=== PATIENT | female | born 1965 | race Caucasian/White ===

== ENCOUNTER 2018-10-10 18:13 | Emergency (ER) | payer MEDICAID ==
[~2018-10-10 18:13] MED LIST: IBUP-1984 PO; LORA1TAB PO; TRAZ-91 PO; ZIPR40CA2 PO; [UNRECOGNIZED DRUG - CODE] PO
[2018-10-10 19:06] VITALS: BP 112/73
== END 2018-10-10 19:09 | disposition home or self-care (01) ==
LOC: ER 18:14
DX: Z04.1 Encounter for examination and observation following transport accident (principal); J44.9 Chronic obstructive pulmonary disease, unspecified; F17.200 Nicotine dependence, unspecified, uncomplicated; Z90.710 Acquired absence of both cervix and uterus
CPT/HCPCS: 99283

== ENCOUNTER 2020-01-29 05:04 | Emergency (ER) | payer MEDICARE, MEDICAID ==
[~2020-01-29] VITALS: Ht 152.4 cm; Wt 72.0 kg
[2020-01-29 05:28] VITALS: BP 122/84
== END 2020-01-30 05:55 | disposition home or self-care (01) ==
LOC: ER 05:08
DX: Z00.8 Encounter for other general examination (principal); R05 Cough; J44.9 Chronic obstructive pulmonary disease, unspecified; F41.9 Anxiety disorder, unspecified; F32.9 Major depressive disorder, single episode, unspecified; F17.200 Nicotine dependence, unspecified, uncomplicated; Z90.710 Acquired absence of both cervix and uterus; Z72.89 Other problems related to lifestyle; Z79.899 Other long term (current) drug therapy
CPT/HCPCS: 99281

== ENCOUNTER 2020-03-27 09:56 | Emergency (ER) | payer MEDICARE, MEDICAID ==
[~2020-03-27] VITALS: Ht 152.4 cm; Wt 72.7 kg
[2020-03-27 09:59] VITALS: BP 123/76
[2020-03-27] MEDS ORDERED: ACET-2144 PO (11:57)
[2020-03-27] MEDS ORDERED: IBUP-1984 PO (11:57)
== END 2020-03-27 12:15 | disposition home or self-care (01) ==
LOC: ER 09:57
DX: M79.644 Pain in right finger(s) (principal); J44.9 Chronic obstructive pulmonary disease, unspecified; F41.9 Anxiety disorder, unspecified; F32.9 Major depressive disorder, single episode, unspecified; Z90.710 Acquired absence of both cervix and uterus; Z72.89 Other problems related to lifestyle; Z79.899 Other long term (current) drug therapy
CPT/HCPCS: 29125; 73130; 99283

== ENCOUNTER 2020-04-18 10:52 | Emergency (ER) | payer MEDICARE, MEDICAID ==
[~2020-04-18] VITALS: Ht 152.4 cm; Wt 72.7 kg
[2020-04-18 10:59] VITALS: BP 122/75
== END 2020-04-18 12:18 | disposition home or self-care (01) ==
LOC: ER 10:53
DX: K42.9 Umbilical hernia without obstruction or gangrene (principal); J44.9 Chronic obstructive pulmonary disease, unspecified; F41.9 Anxiety disorder, unspecified; F32.9 Major depressive disorder, single episode, unspecified; F17.200 Nicotine dependence, unspecified, uncomplicated; Z90.710 Acquired absence of both cervix and uterus; Z72.89 Other problems related to lifestyle; Z79.899 Other long term (current) drug therapy
CPT/HCPCS: 99281

== ENCOUNTER 2020-04-29 06:33 | Day surgery (SDC) | payer MEDICARE, MEDICAID ==
[2020-04-22 11:34] LABS: BASOPHILS # (AUTO) 0.1 X10'3 (0-0.2); BASOPHILS % (AUTO) 0.7 % (0-1); EOSINOPHILS # (AUTO) 0.3 X10'3 (0-0.9); EOSINOPHILS % (AUTO) 3.1 % (0-6); LYMPHOCYTES # (AUTO) 2.7 X10'3 (1.1-4.8); LYMPHOCYTES % (AUTO) 31.6 % (21-51); MEAN CORPUSCULAR HEMOGLOBIN 31.7 PG (27.0-31.0); MEAN CORPUSCULAR HGB CONC 34.4 g/dL (33.0-36.5); MEAN CORPUSCULAR VOLUME 92.1 FL (78-98); MEAN PLATELET VOLUME 9.1 FL (7.4-10.4); MONOCYTES # (AUTO) 0.7 X10'3 (0-0.9); MONOCYTES % (AUTO) 7.7 % (2-12); NEUTROPHILS # (AUTO) 4.9 X10'3 (1.8-7.7); NEUTROPHILS % (AUTO) 56.9 % (42-75); PRE OP HEMATOCRIT 40.4 % (35.0-45.0); PRE OP HEMOGLOBIN 13.9 g/dL (12.0-16.0); PRE OP PLATELET COUNT 275 X10'3 (140-440); RED BLOOD COUNT 4.38 X10'6 (4.20-5.60); RED CELL DISTRIBUTION WIDTH 14.8 % (11.5-14.5)
[2020-04-22 11:48] LABS: ALBUMIN 3.9 G/DL (3.4-5.0); ALBUMIN/GLOBULIN RATIO 1.1 (1.1-1.5); ALKALINE PHOSPHATASE 70 IU/L (46-116); BLOOD UREA NITROGEN 12 MG/DL (7-18); BUN/CREATININE RATIO 16.9 (6.6-38.0); CHLORIDE 104 MMOL/L (99-107); CREATININE 0.71 MG/DL (0.40-0.90); PRE OP ALT 33 U/L (30-65); PRE OP ANION GAP 8 (8-16); PRE OP AST 17 U/L (10-37); PRE OP BILIRUB, TOTAL 0.3 MG/DL (0.0-1.0); PRE OP GLUCOSE 97 MG/DL (70-104); PRE OP POTASSIUM 4.2 MMOL/L (3.4-5.1); PRE OP SODIUM 140 MMOL/L (135-145); TOTAL CARBON DIOXIDE 28.3 MMOL/L (24-32); TOTAL PROTEIN 7.5 G/DL (6.4-8.2); eGFR 85 ML/MIN
[2020-04-22 12:33] LABS: CLARITY,URINE CLEAR (Clear); COLOR,URINE YELLOW (Yellow); GLUCOSE, URINE NEGATIVE (Neg); KETONES,URINE NEGATIVE (Neg); LEUKOCYTE ESTERASE ,URINE NEGATIVE (Neg); NITRITES, URINE NEGATIVE (Neg); OCCULT BLOOD,URINE NEGATIVE (Neg); PROTEIN,URINE NEGATIVE (Neg)
[2020-04-22 12:35] LABS: UA COLLECTION TYPE CLN CATCH MIDSTREAM
[2020-04-29] VITALS (9 sets, daily range): BP systolic 105–120; BP diastolic 67–73
[~2020-04-29] VITALS: Ht 152.4 cm; Wt 77.5 kg
[~2020-04-29 06:33] MED LIST changes: +ALBU18HF2 INH; +ALBU2.5V10 INH; +BUSP7.5T5 PO; +CLON-369 PO; -IBUP-1984 PO; -LORA1TAB PO; +LURA40TA3 PO; +UMEC1DIS INH; +VILA20TA PO; -ZIPR40CA2 PO; -[UNRECOGNIZED DRUG - CODE] PO; +albuterol 2.5 MG/3 ML nebule NEB ONE; +cefazolin/dext.iso 2gm/50ml 50 ML IV ONE; +famotidine 10mg tablet PO ONE; +ringers solution, lacted 1,000 ML IV SCH
[2020-04-29] MEDS ORDERED: LIDOcaine 1% (10mg/ml) 2ml vial ONE (06:57)
[2020-04-29] MEDS ORDERED: BUPIVAcaine/PF 2.5 mg/ml (0.25%) 30ml vial ONE (07:21)
[2020-04-29] MEDS ORDERED: sevoflurane 250ml liquid IH ONE (09:22)
[2020-04-29] MEDS ORDERED: dexamethasone sod phosphate 10mg/ml inj ONE (09:22)
[2020-04-29] MEDS ORDERED: ondansetron/PF 4mg/2ml inj ONE (09:22)
[2020-04-29] MEDS ORDERED: fentaNYL/PF 50MCG/1 ML 2ML syringe ONE (09:28)
[2020-04-29] MEDS ORDERED: meperidine/PF 25mg/ml syringe ONE (09:29)
[2020-04-29] MEDS ORDERED: midazolam 2 mg/2 ml injection ONE (09:29)
[2020-04-29] MEDS ORDERED: propofol inj 20 ML IV ONE (09:36)
[2020-04-29] MEDS ORDERED: LIDOcaine 2% (20mg/ml) 5ml vial ONE (09:36)
[2020-04-29] MEDS ORDERED: rocuronium 10mg/ml inj IV ONE (09:36)
[2020-04-29] MEDS ORDERED: morphine 4 MG/ML inj SYRINge IV PRN (09:55)
[2020-04-29] MEDS ORDERED: ondansetron/PF 4mg/2ml inj IV PRN (09:55)
[2020-04-29] MEDS ORDERED: meperidine/PF 25mg/ml syringe IV PRN ×3 (09:55)
[2020-04-29] MEDS ORDERED: ringers solution, lacted 1,000 ML IV SCH (09:55)
[2020-04-29] MEDS ORDERED: morphine 2 MG/ML inj. syringe IV PRN (09:55)
[2020-04-29] MEDS ORDERED: proCHLORperazine 10 MG/2 ml inj IV PRN (09:55)
[2020-04-29] MEDS ORDERED: ketorolac trometh. 30mg/ml inj. ONE (10:06)
[2020-04-29] MEDS ORDERED: neostigmine methylsulfate 1 MG/ML 10ml vial ONE (10:09)
[2020-04-29] MEDS ORDERED: glycopyrrolate 0.2mg/ml inj ONE (10:09)
--- NOTE | 2020-04-29 10:23 | NUR ---
RECEIVED FROM OR VIA RE[facility] ACCOMPANIED BY ANESTHESIOLOGIST DR AREVALO, REPORT GIVEN.PT DROWSY BUT AROUSES EASILY AND DENIES PAIN AT THIS TIME.20 GAUGE PIV L WRIST PATENT AND RUNNING LR AT 100 ML/HR. LG BANDAIDS TO ABDOMEN CDI, ABD SOFT, ADAMSON, VSS, BRISK CAP REFILL, PPULSES PALPABLE, RESTING COMFORTABLY.
--- NOTE | 2020-04-29 11:23 | NUR ---
PT AWAKE AND ALERT AND DENIES PAIN AT THIS TIME.20 GAUGE PIV L WRIST DCD, CAT TIP INTACT. LG BANDAIDS TO ABDOMEN CDI, ABD SOFT, ADAMSON, VSS, BRISK CAP REFILL, PPULSES PALPABLE, DISCHARGE CRITERIA MET. DISCHARGE INSTRUCTIONS GIVEN AND PT VERBALIZED UNDERSTANDING. TOLERATING FLUIDS, ABLE TO DRESS SELF AND AMBULATE WITH NO ASSIST. TRANSPORTED VIA WHEELCHAIR TO FRIEND IN PERSONAL VEHICLE TO HOME.
== END 2020-04-29 11:23 | disposition home or self-care (01) ==
LOC: PAS 06:33
PROVIDERS: ATTEND Surgery
DX: K42.9 Umbilical hernia without obstruction or gangrene (principal); D17.1 Benign lipomatous neoplasm of skin and subcutaneous tissue of trunk; J44.9 Chronic obstructive pulmonary disease, unspecified; M19.90 Unspecified osteoarthritis, unspecified site; E78.5 Hyperlipidemia, unspecified; F41.9 Anxiety disorder, unspecified; F31.9 Bipolar disorder, unspecified; Z90.710 Acquired absence of both cervix and uterus; F17.210 Nicotine dependence, cigarettes, uncomplicated; Z79.899 Other long term (current) drug therapy; Z20.828 Contact with and (suspected) exposure to other viral communicable diseases; Z98.890 Other specified postprocedural states; Z80.1 Family history of malignant neoplasm of trachea, bronchus and lung; Z83.6 Family history of other diseases of the respiratory system; Z82.61 Family history of arthritis; Z84.89 Family history of other specified conditions
CPT/HCPCS: 22902; 36415; 49320; 80053; 81003; 82948; 85025; 87635; 93005; C1758; J1100; J1885; J2001; J2175; J2250; J2405; J2704; J2710; J3010; J3490; J7120; A4215; A4618; A7000

== ENCOUNTER 2020-05-06 20:21 | Emergency (ER) | payer MEDICARE, MEDICAID ==
[~2020-05-06] VITALS: Ht 152.4 cm; Wt 77.3 kg
[~2020-05-06 20:21] MED LIST changes: -albuterol 2.5 MG/3 ML nebule NEB ONE; -cefazolin/dext.iso 2gm/50ml 50 ML IV ONE; -famotidine 10mg tablet PO ONE; -ringers solution, lacted 1,000 ML IV SCH
[2020-05-06 20:53] LABS: BASOPHILS # (AUTO) 0.1 X10'3 (0-0.2); BASOPHILS % (AUTO) 1.1 % (0-1); EOSINOPHILS # (AUTO) 0.4 X10'3 (0-0.9); EOSINOPHILS % (AUTO) 4.1 % (0-6); HEMATOCRIT 37.9 % (35.0-45.0); HEMOGLOBIN 13.4 g/dl (12.0-16.0); LYMPHOCYTES # (AUTO) 2.5 X10'3 (1.1-4.8); MEAN CORPUSCULAR HGB CONC 35.3 g/dL (33.0-36.5); MEAN CORPUSCULAR VOLUME 90.5 FL (78-98); MONOCYTES # (AUTO) 0.7 X10'3 (0-0.9); MONOCYTES % (AUTO) 7.2 % (2-12); NEUTROPHILS # (AUTO) 6.4 X10'3 (1.8-7.7); NEUTROPHILS % (AUTO) 62.6 % (42-75); PLATELET COUNT 267 X10'3 (140-440); RED BLOOD COUNT 4.19 X10'6 (4.20-5.60); RED CELL DISTRIBUTION WIDTH 15.1 % (11.5-14.5); WHITE BLOOD COUNT 10.2 X10'3 (4.5-11.0)
[2020-05-06] MEDS ORDERED: iohexol 300mg/ml 100ml inj. ONE (20:55)
[2020-05-06 21:07] LABS: ALANINE AMINOTRANSFERASE 20 U/L (12-78); ALBUMIN 3.4 G/DL (3.4-5.0); ALBUMIN/GLOBULIN RATIO 0.9 (1.1-1.5); ALKALINE PHOSPHATASE 68 IU/L (46-116); ANION GAP 7 (8-16); ASPARTATE AMINO TRANSFERASE 15 U/L (10-37); BILIRUBIN,TOTAL 0.5 MG/DL (0.1-1.0); BLOOD UREA NITROGEN 8 MG/DL (7-18); BUN/CREATININE RATIO 15.4 (6.6-38.0); CALCIUM 9.1 MG/DL (8.5-10.1); CHLORIDE 100 MMOL/L (99-107); CREATININE 0.52 MG/DL (0.40-0.90); GLUCOSE 107 MG/DL (70-104); POTASSIUM 3.8 MMOL/L (3.5-5.1); SODIUM 134 MMOL/L (135-145); TOTAL CARBON DIOXIDE 27.2 MMOL/L (24-32); TOTAL PROTEIN 7.4 G/DL (6.4-8.2); eGFR > 90 ML/MIN
[2020-05-06] MEDS ORDERED: morphine 10mg/ml inj. IV ONE (21:30)
[2020-05-06] MEDS ORDERED: ondansetron/PF 4mg/2ml inj IV ONE (21:30)
--- NOTE | 2020-05-06 21:59 | NUR ---
To Ct scan via gurney with the side rails raised.
[2020-05-06 22:27] VITALS: BP 124/84
[2020-05-06 23:04] LABS: CLARITY,URINE SLIGHTLY CLOUDY (Clear); COLOR,URINE YELLOW (Yellow); GLUCOSE, URINE NEGATIVE (Neg); KETONES,URINE NEGATIVE (Neg); LEUKOCYTE ESTERASE ,URINE NEGATIVE (Neg); NITRITES, URINE NEGATIVE (Neg); OCCULT BLOOD,URINE TRACE-INTACT (Neg); PH,URINE 6.5 (4.8-8.0); PROTEIN,URINE NEGATIVE (Neg); UROBILINOGEN,URINE 0.2 E.U/dL (0.2-1.0)
[2020-05-06 23:09] LABS: UA COLLECTION TYPE CLN CATCH MIDSTREAM
[2020-05-06 23:11] LABS: BACTERIA,URINE 3+ /HPF (Neg); RBC,URINE 0-2 /HPF (0-2); SQUAMOUS EPITHELIAL CELL,UR MANY /LPF (FEW); WBC,URINE 0-4 /HPF (0-4)
== END 2020-05-06 23:56 | disposition home or self-care (01) ==
LOC: ER 20:21
DX: G89.18 Other acute postprocedural pain (principal); R10.84 Generalized abdominal pain; J44.9 Chronic obstructive pulmonary disease, unspecified; F17.210 Nicotine dependence, cigarettes, uncomplicated; Z90.710 Acquired absence of both cervix and uterus; Z79.899 Other long term (current) drug therapy
CPT/HCPCS: 36415; 74177; 80053; 81001; 85025; 85610; 93005; 96374; 96375; 99285; J2270; J2405; Q9967

== ENCOUNTER 2020-05-18 09:12 | Emergency (ER) | payer MEDICARE, MEDICAID ==
[~2020-05-18] VITALS: Ht 152.4 cm; Wt 73.0 kg
[2020-05-18] MEDS ORDERED: ondansetron 4mg rapidly disintigrating tab PO ONE (09:40)
[2020-05-18] MEDS ORDERED: LORazepam 1 MG tablet PO ONE (09:40)
[2020-05-18 10:28] VITALS: BP 141/94
== END 2020-05-18 10:29 | disposition home or self-care (01) ==
LOC: ER 09:13
DX: F41.9 Anxiety disorder, unspecified (principal); F31.9 Bipolar disorder, unspecified; J44.9 Chronic obstructive pulmonary disease, unspecified; Z90.710 Acquired absence of both cervix and uterus; Z72.89 Other problems related to lifestyle; Z79.899 Other long term (current) drug therapy
CPT/HCPCS: 99283

== ENCOUNTER 2020-12-13 11:14 | Emergency (ER) | payer MEDICARE, MEDICAID ==
[~2020-12-13] VITALS: Ht 152.4 cm; Wt 78.5 kg
[2020-12-13 12:27] LABS: BASOPHILS % (AUTO) 0.5 % (0-1); EOSINOPHILS # (AUTO) 0.3 X10'3 (0-0.9); EOSINOPHILS % (AUTO) 3.5 % (0-6); HEMATOCRIT 42.5 % (35.0-45.0); LYMPHOCYTES # (AUTO) 3.1 X10'3 (1.1-4.8); LYMPHOCYTES % (AUTO) 37.7 % (21-51); MEAN CORPUSCULAR HEMOGLOBIN 33.3 PG (27.0-31.0); MEAN CORPUSCULAR HGB CONC 35.3 g/dL (33.0-36.5); MEAN CORPUSCULAR VOLUME 94.1 FL (78-98); MEAN PLATELET VOLUME 9.5 FL (7.4-10.4); MONOCYTES # (AUTO) 0.7 X10'3 (0-0.9); MONOCYTES % (AUTO) 8.6 % (2-12); NEUTROPHILS % (AUTO) 49.7 % (42-75); PLATELET COUNT 256 X10'3 (140-440); RED BLOOD COUNT 4.52 X10'6 (4.20-5.60); RED CELL DISTRIBUTION WIDTH 15.7 % (11.5-14.5); WHITE BLOOD COUNT 8.1 X10'3 (4.5-11.0)
[2020-12-13 12:45] LABS: ALANINE AMINOTRANSFERASE 38 U/L (12-78); ALBUMIN/GLOBULIN RATIO 1.1 (1.1-1.5); ALKALINE PHOSPHATASE 68 IU/L (46-116); AMYLASE 49 U/L (25-115); ANION GAP 12 (8-16); ASPARTATE AMINO TRANSFERASE 21 U/L (10-37); BILIRUBIN,TOTAL 0.3 MG/DL (0.1-1.0); BLOOD UREA NITROGEN 8 MG/DL (7-18); BUN/CREATININE RATIO 9.8 (6.6-38.0); CALCIUM 9.2 MG/DL (8.5-10.1); CHLORIDE 104 MMOL/L (99-107); CREATININE 0.82 MG/DL (0.40-0.90); GLUCOSE 100 MG/DL (70-104); LIPASE 106 U/L (73-393); POTASSIUM 4.4 MMOL/L (3.5-5.1); SODIUM 138 MMOL/L (135-145); TOTAL CARBON DIOXIDE 22.5 MMOL/L (24-32); TOTAL PROTEIN 7.8 G/DL (6.4-8.2); eGFR 72 ML/MIN
[2020-12-13] MEDS ORDERED: normal saline 1000ML IV soln IVB ONE (13:10)
[2020-12-13] MEDS ORDERED: ketorolac trometh. 30mg/ml inj. IV ONE (13:10)
[2020-12-13] MEDS ORDERED: ondansetron/PF 4mg/2ml inj IV ONE (13:10)
[2020-12-13] MEDS ORDERED: sucralfate 1gm/10ml UD suspension PO STA (13:11)
[2020-12-13] MEDS ORDERED: mag hydrox/Alum hydrox/simeth 30ml oral suspension PO ONE (13:15)
[2020-12-13] MEDS ORDERED: LIDOcaine Viscous 15ml cup MM ONE (13:15)
[2020-12-13] MEDS ORDERED: BECL7.3A INH (13:32)
[2020-12-13] MEDS ORDERED: PRED10TA23 PO (13:32)
[2020-12-13 14:04] VITALS: BP 116/83
== END 2020-12-13 14:06 | disposition home or self-care (01) ==
LOC: ER 11:14
DX: R07.81 Pleurodynia (principal); J44.9 Chronic obstructive pulmonary disease, unspecified; Z90.710 Acquired absence of both cervix and uterus; Z72.89 Other problems related to lifestyle; Z79.899 Other long term (current) drug therapy
CPT/HCPCS: 36415; 71046; 80053; 82150; 83690; 85025; 93005; 99285

== ENCOUNTER 2021-11-02 15:29 | Emergency (ER) | payer MEDICARE, MEDICAID ==
[~2021-11-02] VITALS: Ht 152.4 cm; Wt 68.2 kg
[~2021-11-02 15:29] MED LIST changes: +BECL7.3A INH; +LURA40TA2 PO; -LURA40TA3 PO
[2021-11-02 16:26] LABS: BASOPHILS # (AUTO) 0.1 X10'3 (0-0.2); BASOPHILS % (AUTO) 0.9 % (0-1); EOSINOPHILS # (AUTO) 0.2 X10'3 (0-0.9); EOSINOPHILS % (AUTO) 2.5 % (0-6); HEMATOCRIT 41.4 % (35.0-45.0); HEMOGLOBIN 14.5 g/dl (12.0-16.0); LYMPHOCYTES # (AUTO) 2.4 X10'3 (1.1-4.8); LYMPHOCYTES % (AUTO) 31.8 % (21-51); MEAN CORPUSCULAR HGB CONC 34.9 g/dL (33.0-36.5); MEAN CORPUSCULAR VOLUME 94.7 FL (78-98); MEAN PLATELET VOLUME 9.3 FL (7.4-10.4); MONOCYTES # (AUTO) 0.7 X10'3 (0-0.9); MONOCYTES % (AUTO) 9.1 % (2-12); NEUTROPHILS # (AUTO) 4.1 X10'3 (1.8-7.7); NEUTROPHILS % (AUTO) 55.7 % (42-75); PLATELET COUNT 245 X10'3 (140-440); RED BLOOD COUNT 4.38 X10'6 (4.20-5.60); RED CELL DISTRIBUTION WIDTH 14.4 % (11.5-14.5); WHITE BLOOD COUNT 7.4 X10'3 (4.5-11.0)
[2021-11-02 16:56] LABS: ALANINE AMINOTRANSFERASE 29 U/L (12-78); ALBUMIN 3.8 G/DL (3.4-5.0); ALBUMIN/GLOBULIN RATIO 1.1 (1.1-1.5); ALKALINE PHOSPHATASE 60 IU/L (46-116); ANION GAP 11 (8-16); ASPARTATE AMINO TRANSFERASE 18 U/L (10-37); BILIRUBIN,TOTAL 0.3 MG/DL (0.1-1.0); BLOOD UREA NITROGEN 8 MG/DL (7-18); BUN/CREATININE RATIO 8.6 (6.6-38.0); CALCIUM 9.1 MG/DL (8.5-10.1); CHLORIDE 104 MMOL/L (99-107); CREATININE 0.93 MG/DL (0.40-0.90); GLUCOSE 113 MG/DL (70-104); POTASSIUM 4.4 MMOL/L (3.5-5.1); SODIUM 140 MMOL/L (135-145); TOTAL CARBON DIOXIDE 24.6 MMOL/L (24-32); TOTAL PROTEIN 7.4 G/DL (6.4-8.2); eGFR 62 ML/MIN
[2021-11-02 18:21] VITALS: BP 138/90
== END 2021-11-02 18:22 | disposition home or self-care (01) ==
LOC: ER 15:29
DX: R00.2 Palpitations (principal); R07.89 Other chest pain; R42 Dizziness and giddiness; R53.1 Weakness; J44.9 Chronic obstructive pulmonary disease, unspecified; F41.9 Anxiety disorder, unspecified; F31.9 Bipolar disorder, unspecified; F17.200 Nicotine dependence, unspecified, uncomplicated; Z90.710 Acquired absence of both cervix and uterus; Z72.89 Other problems related to lifestyle; Z79.899 Other long term (current) drug therapy
CPT/HCPCS: 36415; 71045; 80053; 83880; 84484; 85025; 93005; 99285

== ENCOUNTER 2021-11-10 14:23 | Emergency (ER) | payer MEDICARE, MEDICAID ==
[~2021-11-10] VITALS: Ht 152.4 cm; Wt 71.9 kg
[2021-11-10 14:59] VITALS: BP 124/67
== END 2021-11-10 18:33 | disposition left against medical advice (07) ==
LOC: ER 14:24
DX: R42 Dizziness and giddiness (principal); Z53.21 Procedure and treatment not carried out due to patient leaving prior to being seen by health care provider
CPT/HCPCS: 93005